=== PATIENT | male | born 1940 | race Caucasian/White ===

== ENCOUNTER 2018-11-05 17:31 | Inpatient (IN) | payer OTHER ==
[~2018-11-05] VITALS: Ht 175.2 cm; Wt 90.9 kg
--- NOTE | ~2018-11-05 | PR ---
[place], [place] PROGRESS NOTE NAME: LESLIE KNOX UNIT #: [id number] ROOM: 519 DOCTOR: FARTUN JIMENEZ MD,ADRI BIRTHDATE: [birth year] DOS: 11/09/2018 PULMONARY PROGRESS NOTE SUBJECTIVE: The patient noted comfortable at this time, resting in the bed. He has noted without any symptoms of chest pain, coughing, sputum expectoration, or abdominal pain. OBJECTIVE: VITAL SIGNS: Normal temperature, respiratory rate 20, heart rate 60, blood pressure 121/54. The pulse oxygen saturation recorded as 97% saturation. HEENT: Head was atraumatic. Eyes nonicterus. NECK: Supple. CARDIOVASCULAR SYSTEM: S1, S2 is audible. LUNGS: Without any wheezing or crackles at the present time. ABDOMEN: Soft, nontender. Bowel sounds present. EXTREMITIES: The patient was noted without any acute edema. IMPRESSION: 1. Resolution of acute congestive heart failure exacerbation. 2. 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 PLAN OF MANAGEMENT: No changes in the plan of care at this time. Continue the patient's current therapy, plan of management as previously. Usual care. ADRI WILLOUGHBY MD CM:PNTRANS [id number] ADRI JIMENEZ MD 11/10/18 0140 interface
--- NOTE | ~2018-11-05 | PR ---
[place], [place] PROGRESS NOTE NAME: LESLIE KNOX UNIT #: [id number] ROOM: 519 DOCTOR: FARTUN JIMENEZ MD,ADRI BIRTHDATE: [birth year] DOS: 11/07/2018 SUBJECTIVE: The patient has been noted comfortable at this time, sitting on the bed. Denies symptoms of chest pain. The patient still noted slow to respond to the vocal commands. However, denies any symptoms of fever or chills. Denies symptoms of coughing. Shortness of breath has been improving. OBJECTIVE: VITAL SIGNS: Normal temperature, respiratory rate 20, heart rate 60, blood pressure 114/55. Pulse oxygen saturation on room air was 100% saturation. HEENT: Examination shows no acute change. NECK: Supple. CARDIOVASCULAR: S1, S2 is audible. LUNGS: The patient was noted occasional crackles in the lung bases. There was no wheezing. ABDOMEN: Soft, nontender. Bowel sounds present. EXTREMITIES: The patient noted unchanged. IMPRESSION: 1. Asbestosis with possibility of pseudotumor with pulmonary nodule. 2. Chronic obstructive pulmonary disease exacerbation. PLAN OF TREATMENT: The patient has been responding to treatment at this time with current medical management. Continue steroids. Possible discharge planning upon assessment and clear him from the Cardiology may be considered tomorrow morning. In the meantime, continue other therapy, plan of management, care plan. Usual care. ADRI WILLOUGHBY MD CM:PNTRANS [id number] ADRI JIMENEZ MD 11/07/18 2215 interface
--- NOTE | ~2018-11-05 | EKG ---
[place], [place] ELECTROCARDIOGRAM REPORT NAME: LESLIE KNOX UNIT #: [id number] ROOM: 519 DOCTOR: MARIELY DRAFT REPORT BIRTHDATE: [birth year] [facility] Test Date: 2018-11-05 Test Time: 17:49:21 Pat Name: LESLIE KNOX Department: Room: 519 Gender: M Obstetrics Gyn Physician: : [id number] Requested By: TIMBO OBRIEN Order Number: [id number] Reading MD: Ronen Hawthorne MD Measurements Intervals [place] Rate: 71 P: 69 ID: [id number] QRS: 65 QRSD: 108 T: 66 QT: 408 QTc: 443 Interpretive Statements Sinus rhythm Atrial premature complex Left ventricular hypertrophy with secondary ST changes Electronically Signed On 11-06-2018 9:28:42 PST by Ronen Hawthorne MD CM:EKGRPT:ELECTROCARDIOGRAM REPORT [id number] TIMBO GRAMAJO DRAFT REPORT TIMBO OBRIEN DO
--- NOTE | ~2018-11-05 | PROC NOTE ---
[place], [place] PROCEDURE NOTE NAME: LESLIE KNOX UNIT #: [id number] ROOM: 519 DOCTOR: NANCY MATTHEWS BIRTHDATE: [birth year] DOS: 11/06/2018 MODIFIED BARIUM SWALLOW LOCATION: [facility], room 519, bed 1. ORDERING PHYSICIAN: Dr. Engel. RADIOLOGIST: Dr. Mustafa. BACKGROUND INFORMATION: The patient during a 78-year-old male who was seen for modified barium swallow. This test was ordered to rule out aspiration. A recent chest x-ray indicated developing pneumonia or aspiration. The patient is diagnosed with acute heart failure. He is currently n.p.o. He reported occasional cough with meals. For today's assessment, the patient was alert and able to follow all commands. Respiratory status was within normal limits. Oral peripheral examination revealed presence of upper and lower denture with adequate fit reported. Lingual, labial and buccal skills were within normal limits in terms of strength, range of motion and coordination. The patient was able to volitionally cough and swallow. METHODS AND MATERIALS USED FOR THE EXAM: The patient was positioned in the lateral plane and exam was viewed under fluoroscopy. The patient was presented with a variety of consistencies to assess swallowing skills including applesauce mixed with barium presented in half teaspoon amounts, barium-coated cookie and sandwich given in bite size pieces and thin liquid barium taken both by cup and straw in single and consecutive larger sip size amounts. ORAL PHASE: Unremarkable. PHARYNGEAL PHASE: Unremarkable. ESOPHAGEAL PHASE: This phase of the swallow was not formally assessed during this exam. IMPRESSIONS AND RECOMMENDATIONS: Based upon assessment results, this 78-year-old patient presents with oral and pharyngeal swallowing skills that are within normal limits. There was no penetration, aspiration or residue observed. Recommend a regular diet and thin liquids. No followup therapy is recommended due to safe intolerance of food and liquid. Results and recommendations were shared with the patient and he verbalized understanding. Thank you very much for this referral. Should you have any questions regarding this patient, please contact the speech pathologist at [phone]. [place], [place] PROCEDURE NOTE NAME: LESLIE KNOX UNIT #: [id number] ROOM: 519 DOCTOR: NANCY MATTHEWS BIRTHDATE: [birth year] NANCY MATTHEWS CM:AKOSUA:PROCEDURE NOTE [id number] NANCY MATTHEWS
--- NOTE | ~2018-11-05 | PR ---
[place], [place] PROGRESS NOTE NAME: LESLIE KNOX UNIT #: [id number] ROOM: 519 DOCTOR: ELDER STONE MD BIRTHDATE: [birth year] DOS: 11/08/2018 SUBJECTIVE: The patient was seen at his bedside today, 11/08/2018 for followup of his acute on chronic combined systolic and diastolic heart failure and valvular heart disease. He tells me that he is feeling well. His chest x-ray has returned to a normal appearing state. He has diuresed about 3-1/2 liters since admission. PHYSICAL EXAMINATION: VITAL SIGNS: Today, his pulse is 53 and regular, blood pressure is 112/46. He is afebrile. NECK: Supple. He has no jugular distention. Carotids are full. LUNGS: Respirations are unlabored. Chest is clear. HEART: Has a regular rhythm with frequent premature beats. He has a grade 2/6 systolic ejection murmur along the left sternal border and a grade 2/6 decrescendo diastolic murmur along the left sternal border as well. ABDOMEN: Benign. EXTREMITIES: Showed no edema. LABORATORY DATA: Electrolytes today show sodium 140, potassium 3.9, chloride 105, CO2 of 28, but his BUN has risen to 52, creatinine is 1.19. IMPRESSION: 1. Acute on chronic combined systolic and diastolic heart failure. 2. Minimal elevation in troponin, likely due to demand ischemia. 3. Valvular heart disease with mild aortic stenosis and moderate aortic insufficiency. The patient also does have a dilated left ventricle with ejection fraction between 45% and 50% and stage 2 diastolic relaxation abnormalities. PLAN: At this point, the patient tells me that his primary seo coordinator in [place] "knows about my problems and is just watching them." I cannot tell if all of his problems are due to his valvular heart disease or if he does have underlying ischemic heart disease or a nonischemic cardiomyopathy. I think, however, that he would benefit from guideline directed medical therapies. Currently, he is on losartan 25 mg daily, metoprolol 25 mg b.i.d. and aspirin in addition to his other medications. Since his BUN and creatinine are going up, I decided to stop his furosemide and start him on spironolactone. I would like to see what his laboratory studies look like in the next 24 hours. If his renal function stabilizes and he is feeling well, he probably could be discharged within the next 24 hours and then followed up by his primary doctor. I thank the hospitalist physicians for asking our advice regarding his care. [place], [place] PROGRESS NOTE NAME: LESLIE KNOX UNIT #: [id number] ROOM: [facility] DOCTOR: ELDER STONE MD BIRTHDATE: [birth year] ELDER STONE MD CM:PNTRANS [phone] ELDER STONE MD 11/09/18 1253 interface
--- NOTE | ~2018-11-05 | CON ---
[place], [place] REPORT OF CONSULTATION NAME: LESLIE KNOX UNIT #: [id number] ROOM: 519 DOCTOR: FARTUN JIMENEZ MDADRI BIRTHDATE: [birth year] DOS: 11/06/2018 PULMONARY CONSULTATION, EVALUATION AND MANAGEMENT CONSULTATION REQUESTED BY: Hospitalist services. REASON FOR CONSULTATION: For the assessment of the patient possibility of acute pneumonia, abnormal finding on CT scan of the chest. HISTORY OF PRESENT ILLNESS: A 78-year-old white male who was admitted to the hospital under care of hospitalist services. Actually review of the medical record, which has been documented by the other physician. According to the records, the patient has been admitted to the Emergency Room has been reporting symptoms of shortness of breath that has been reported at home. The patient denies any symptoms of coughing at the present time. Complaining of some symptoms of dizziness with lightheadedness. He denies any acute symptoms this morning of assessment as he has been asked a question. Review of systems could not be obtained for the patient accurately because of lack of understanding the question and answering them appropriately. PAST MEDICAL HISTORY: Reported: 1. History of gout: 2. Hyperlipidemia. 3. Essential hypertension. 4. Vitamin D deficiency. PAST SURGICAL HISTORY: Reported tonsillectomy. SOCIAL HISTORY: Reported the patient lives with his children. Tobacco use reported since teenager, pack of cigarettes per day until 1989 as stated by the patient as well. FAMILY HISTORY: The patient reported as both parents have been . Father of complication of cirrhosis of the liver. History about the mother and cause of was unknown. HOME MEDICATIONS: Listed allopurinol, aspirin, vitamin D, metoprolol tartrate, simvastatin and Flomax. DRUG ALLERGIES: No known drug allergies. PHYSICAL EXAMINATION: GENERAL: This is a 78-year-old white male patient who has been currently sitting on his bed without any acute distress this morning of assessment. The patient's height recorded as 5 feet 9 inches, weight of 208 pounds, BMI 30.7. VITAL SIGNS: The patient has normal temperature, respiratory rate of 20-17, heart rate of 59-71, blood pressure 134/59-128/50. Pulse oxygen saturation on room air 90%, on 4 liters 96%, later on room air 96% saturation. HEENT: Head was atraumatic. Eye nonicterus. NECK: Supple. [place], [place] REPORT OF CONSULTATION NAME: LESLIE KNOX UNIT #: [id number] ROOM: 519 DOCTOR: FARTUN JIMENEZ MD,ADRI BIRTHDATE: [birth year] CARDIOVASCULAR: S1, S2 is audible. LUNGS: The patient presents with scattered crackles, no wheezing. ABDOMEN: Flat, soft, nontender. Bowel sounds present. EXTREMITIES: The patient was noted without any evidence of edema, clubbing or cyanosis. MUSCULOSKELETAL: Without acute deformities. CENTRAL NERVOUS SYSTEM: The patient noted awake. Does not appear to have any gross focal neurologic deficit. MUSCULOSKELETAL: The patient was noted without any acute deformities. LABORATORY DATA: Reviewed for this consultation. The CBC that was done on admission of 11/05/2018 shows a WBC count normal, hemoglobin 11.3, hematocrit 34.3, platelet count was normal. PT, PTT for the yesterday on admission was normal. CMP of the patient's admission, BUN 29, creatinine normal, remaining LFTs and electrolytes were normal. CBC repeated this morning is identical finding of yesterday. CMP this morning, BUN is still elevated at 29, glucose 123. LFTs were normal. Electrolytes normal. Troponin was normal. Chest x-ray that was done shows evidence of a possible pleural calcification and the infiltration noted predominantly in the lower lung aeration. A small nodule in the right lower lung in the cardiophrenic area cannot be completely excluded. CT scan of the chest that was done without contrast was reviewed. Parenchymal window review shows evidence of paraseptal emphysema changes in the upper lungs. Thickening of the right minor fissure was also noted with some thickening of the left fissure as well. Pleural based nodular density with ___ tear was noted in the posterior basilar subsegment of the right lower lung. Some increased interstitial marking was noted. Calcification of the pleura noted bilaterally. IMPRESSION: 1. The patient who had been currently admitted to the hospital was noted with current finding consistent with Asbestos-related lung disease with possibly asbestosis would be considered interstitial lung disease. 2. The patient pleural based nodule, pseudotumor would be considered very likely in the right lower lung. 3. Past tobacco use. Paraseptal emphysema without any evidence of acute exacerbation of chronic obstructive pulmonary disease at this time noted. The current finding was not noted consistent with any evidence of acute pneumonia as well, current shortness of breath, thick sputum, may be related to possibility of early exacerbation of chronic obstructive pulmonary disease. The occupational history for the patient was not noted clear at the present time. Possible at work place, the patient asbestos inhalation could be considered likely. 4. Pseudotumor versus 2 nodules pleural based in the right lower lobe. PLAN OF MANAGEMENT: I will be discontinuing the antibiotics. The patient will be started on Solu-Medrol 40 mg b.i.d. for the medical management of COPD exacerbation. Continuation of bronchodilators. Try to correlate the history patient obtain with the history of the patient's family members once available to accurately determine the current causative problem of asbestosis for the patient and Asbestos-related lung disease. Supportive therapy, plan of management, care plan. Assess for this patient in the next 24 hours. The [place], [place] REPORT OF CONSULTATION NAME: LESLIE KNOX UNIT #: [id number] ROOM: [facility] DOCTOR: FARTUN JIMENEZ MD,ADRI BIRTHDATE: [birth year] patient responds to current changes in the treatment. Bronchodilator will be administered 4 times a day as well as a DuoNeb. The patient would not require any Lasix at this time. The current findings were not suggestive of congestive heart failure either. Cardiac assessment could be completed for the patient including echocardiogram to assess his left ventricular functions. Outpatient assessment for current nodular density in the right lower lobe for possible consideration of obtaining a PET scan as well. Thanks for allowing me to participate in the care of this patient. ADRI WILLOUGHBY MD CM:CONSTR:REPORT OF CONSULTATION 1359 11/06/18 3945 interface
--- NOTE | ~2018-11-05 | PR ---
[place], [place] PROGRESS NOTE NAME: LESLIE KNOX UNIT #: [id number] ROOM: 519 DOCTOR: FARTUN JIMENEZ MD,ADRI BIRTHDATE: [birth year] DOS: 11/08/2018 SUBJECTIVE: The patient was noted comfortable at this time. At this time, sitting on the chair in the room. Denies symptoms of coughing, sputum expectoration, any chest pain or sputum expectoration. OBJECTIVE: VITAL SIGNS: For the patient which were recorded showed the temperature normal, respiratory rate 20, heart rate 53, blood pressure 112/14-110/50. The pulse oxygen saturation on room air 98% saturation. HEENT: Examination shows head was atraumatic. Eyes: No icterus. NECK: Supple. CARDIOVASCULAR: S1, S2 is audible. LUNGS: The patient without any wheezing or crackles. ABDOMEN: Soft, nontender. IMPRESSION: 1. The patient who has been currently admitted to the hospital, was noted progressive improvement and resolution of the acute respiratory symptoms progressively. 2. Acute congestive heart failure as well. 3. Pleural based nodule as well. 4. Calcified pleural plaques. 5. Asbestos-related lung disease. PLAN OF MANAGEMENT: No changes from the pulmonary standpoint. Consider the patient home discharge whenever desired for the patient. Outpatient care for the patient could be established in my office for the assessment pulmonary nodule and other pulmonary disease. ADRI WILLOUGHBY MD CM:PNTRANS [id number] ADRI JIMENEZ MD 11/09/18 0233 interface
[2018-11-05 17:32] VITALS: BP 190/70
[2018-11-05 18:00] LABS: BASO % 0.6 % (0.0-1.0); EOS # 0.1 10*3/uL (0.0-0.4); EOS % 1.1 % (1.0-4.0); HEMATOCRIT 34.4 % (42.0-52.0); HEMOGLOBIN 11.3 g/dl (14.0-18.0); LYMPH # 1.2 10*3/uL (1.3-4.4); LYMPH % 17.9 % (27.0-41.0); MEAN CELL VOLUME 94.5 fl (80.0-94.0); MEAN CORPUSCULAR HGB CONC 32.8 g/dl (33.0-37.0); MEAN PLATELET VOLUME 10.7 fl (9.6-12.3); MONO # 0.5 10*3/uL (0.1-1.0); MONO % 6.9 % (3.0-9.0); NEUT # 4.8 10*3/uL (2.3-7.9); PLATELET COUNT AUTOMATED 150 10*3/uL (130-400); RED BLOOD COUNT 3.64 10*6/uL (4.50-5.90); RED CELL DISTRI WIDTH 13.2 % (0-14.5); WHITE BLOOD COUNT 6.5 10*3/uL (4.8-10.8)
[2018-11-05 18:15] LABS: ALBUMIN 3.8 gm/dl (3.1-4.5); ALKALINE PHOSPHATASE 97 U/L (45-117); BUN 29 mg/dl (7-24); CHLORIDE 106 mmol/L (98-107); CREATININE 0.91 mg/dL (0.70-1.30); LIPASE 128 U/L (73-393); POTASSIUM 3.9 mmol/L (3.5-5.1); SGOT/AST 17 IU/L (3-35); SGPT/ALT 19 U/L (12-78); SODIUM 140 mmol/L (136-145); TOTAL PROTEIN 7.8 gm/dL (6.4-8.2); TROPONIN I 0.025 ng/ml (<0.045)
[2018-11-05 18:17] LABS: ACT PARTIAL THROMBO TIME 25.1 SECONDS (20.8-31.5)
[2018-11-05 18:32] VITALS: BP 194/85
[2018-11-05 19:35] VITALS: BP 155/53
--- NOTE | 2018-11-05 22:22 | NUR ---
DELAY IN TAKING PT TO FLOOR FOR ADMISSION, PT GOING TO CT SCAN FIRST.
[2018-11-05 22:33] VITALS: BP 134/59
[2018-11-05 23:00] VITALS: BP 155/53
--- NOTE | 2018-11-05 23:00 | NUR ---
A 78YR OLD MALE, admitted to 5E, under the services of LOPEZ Nguyễn DO with a diagnosis of ACUTE HEART FAILURE. Chief complaint is TACHYPNEA AND BILATERAL LOWER EXTREMITY EDEMA. Patient arrived via stretcher from ER. Monitor applied. Initial assessment completed. Vital signs taken and recorded. LOPEZ NGUYỄN DO notified of admission to the unit. Orders received. See assessment for past medical history, medications and allergies. Patient and/or family oriented to unit 5E. visitation policy reviewed. Clothing/patient valuable form completed. HANNAH CLAUDIO
[2018-11-06] MEDS ORDERED: TOPROL XL25 MG PO (00:20)
[2018-11-06] MEDS ORDERED: TAMSULOSIN HCL0.4 MG PO (00:21)
[2018-11-06] MEDS ORDERED: SIMVASTATIN40 MG PO (00:22)
[2018-11-06] MEDS ORDERED: ALLOPURINOL100 MG PO (00:22)
[2018-11-06] MEDS ORDERED: VITAMIN D-32000 UNI1 PO (00:23)
[2018-11-06] MEDS ORDERED: ASPIR LOW81 MG PO (00:24)
--- NOTE | 2018-11-06 00:30 | NUR ---
Called and notified Dr. Engel about medication reconciliation updated and verified per patient's home medication list.
--- NOTE | 2018-11-06 01:52 | NUR ---
Called and notified Dr. Engel regarding critical Troponin level. No new orders received at this time.
--- NOTE | 2018-11-06 03:08 | NUR ---
24 HR chart check completed.
[2018-11-06 04:27] LABS: BASO % 0.4 % (0.0-1.0); EOS # 0.1 10*3/uL (0.0-0.4); EOS % 1.3 % (1.0-4.0); HEMATOCRIT 33.8 % (42.0-52.0); LYMPH # 0.8 10*3/uL (1.3-4.4); LYMPH % 12.1 % (27.0-41.0); MEAN CELL VOLUME 93.9 fl (80.0-94.0); MEAN CORPUSCULAR HGB 30.6 pg (27.0-31.0); MEAN CORPUSCULAR HGB CONC 32.5 g/dl (33.0-37.0); MEAN PLATELET VOLUME 10.4 fl (9.6-12.3); MONO # 0.6 10*3/uL (0.1-1.0); MONO % 8.1 % (3.0-9.0); NEUT # 5.3 10*3/uL (2.3-7.9); NEUT % 77.7 % (47.0-73.0); PLATELET COUNT AUTOMATED 151 10*3/uL (130-400); RED CELL DISTRI WIDTH 13.2 % (0-14.5); WHITE BLOOD COUNT 6.8 10*3/uL (4.8-10.8)
[2018-11-06 04:44] LABS: ALBUMIN 3.8 gm/dl (3.1-4.5); ALKALINE PHOSPHATASE 88 U/L (45-117); BUN 29 mg/dl (7-24); CHLORIDE 106 mmol/L (98-107); CHOLESTEROL 136 mg/dL (<200); CREATININE 1.04 mg/dL (0.70-1.30); FREE T4 1.01 ng/dl (0.76-1.46); HDL CHOLESTEROL 81 mg/dl (40-60); LDL CHOLESTEROL 41 mg/dL (9-159); SGOT/AST 16 IU/L (3-35); SGPT/ALT 18 U/L (12-78); SODIUM 141 mmol/L (136-145); TOTAL PROTEIN 7.6 gm/dL (6.4-8.2); TRIGLYCERIDES 68 mg/dl (<150); VLDL CHOLESTEROL 14 mg/dL (6-40)
--- NOTE | 2018-11-06 04:45 | NUR ---
Called and notified Dr. Engel of critical Troponin level. No new orders were received at this time.
--- NOTE | 2018-11-06 06:43 | NUR ---
Called and notified Dr. Pineda regarding consult. He said ok.
[2018-11-06 08:00] VITALS: BP 128/50
[2018-11-06 08:18] LABS: VITAMIN D, 25-HYDROXY 24.5 ng/mL (30-100)
--- NOTE | 2018-11-06 11:34 | NUR ---
Row Boss in to talk to patient. Patient states lives at HOME with SON, HIS AND CHILD. There are 15 steps in the home. Physician: STATES DR IN [place], YOU WOULD NOT KNOW HER, BUT HE WAS UNABLE TO GIVE NAME Pharmacy: [facility] Home health services: NONE Patient's level of ADLs: INDEPENDENT Patient has working utilities: YES DME: NONE Follow-up physician's appointment after d/c: PT STATES WILL MAKE IT Does patient want to access PORTAL?: NO Discharge plan SPOKE WITH PT ABOUT DISCHARGE PLANS, PT SEEMS FORGETFUL AT TIMES, STATES HE LIVES WITH HIS SON AND HIS AND CHILD. ATTEMPT TO TALK TO PT ABOUT SKILLED STAY OR HH, BUT PT STATES I AM GOING HOME AND IT IS GOING TO BE PRETTY SOON. WILL CONTINUE TO FOLLOW . GARY HANNA
[2018-11-06 12:00] VITALS: BP 138/56
--- NOTE | 2018-11-06 13:54 | NUR ---
SPEECH PATHOLOGY Modified barium swallow completed as per orders. This was ordered to rule out aspiration. Patient is currently NPO. CXR revealed patchy airspace disease in right middle and superior segment of right lower lobe, indicating developing pneumonia or aspiration. Patiet reported occasional cough with meals. He was assessed with puree, solids and thin liquids via cup and straw. Oral and pharyngeal swallowing skills were WNL. There was no penetration, aspiration or residue. Recommend a regular diet and thin liquids. No follow up therapy is recommended due to safe tolerance of food and liquid. Patient's nurse will be informed of results and karuna. and verbalized understanding. Dictated report to follow. Thank you for this referral. [facility] [employer] [employer]
[2018-11-06 14:06] LABS: BILIRUBIN NEGATIVE (NEGATIVE); BLOOD NEGATIVE (NEGATIVE); CLARITY CLEAR (CLEAR); COLOR YELLOW (YELLOW); GLUCOSE NEGATIVE (NEGATIVE); KETONE NEGATIVE (NEGATIVE); LEUKO ESTERASE NEGATIVE (NEGATIVE); NITRITE NEGATIVE (NEGATIVE); PH 5.5 (5.0-9.0); UROBILINOGEN 0.2 E.U./dl (0.2-1.0)
[2018-11-06 14:14] LABS: BACTERIA TRACE; RBC 0-2 rbc/hpf (0-2); WBC 0-2 wbc/hpf (0-5)
--- NOTE | 2018-11-06 15:04 | NUR ---
SPEECH CALLED AND STATES PT PASSED MOD BARIUM SWALLOW. AND COULD BE ON A REGULAR DIET. DR ZAVALA NOTIFIED.
[2018-11-06 16:00] VITALS: BP 154/52
--- NOTE | 2018-11-06 17:16 | NUR ---
DR STONE'S RESIDENT NOTIFIED OF CONSULT.
[2018-11-06 20:00] VITALS: BP 123/58
[2018-11-07] VITALS: BP 153/62
[2018-11-07 06:27] LABS: BASO % 0.2 % (0.0-1.0); HEMATOCRIT 33.8 % (42.0-52.0); HEMOGLOBIN 10.8 g/dl (14.0-18.0); LYMPH # 0.5 10*3/uL (1.3-4.4); LYMPH % 11.3 % (27.0-41.0); MEAN CELL VOLUME 93.1 fl (80.0-94.0); MEAN CORPUSCULAR HGB 29.8 pg (27.0-31.0); MEAN PLATELET VOLUME 11.7 fl (9.6-12.3); MONO # 0.1 10*3/uL (0.1-1.0); MONO % 2.8 % (3.0-9.0); NEUT # 3.6 10*3/uL (2.3-7.9); NEUT % 85.2 % (47.0-73.0); PLATELET COUNT AUTOMATED 163 10*3/uL (130-400); RED BLOOD COUNT 3.63 10*6/uL (4.50-5.90); RED CELL DISTRI WIDTH 13.1 % (0-14.5); WHITE BLOOD COUNT 4.3 10*3/uL (4.8-10.8)
[2018-11-07 06:33] LABS: CHLORIDE 102 mmol/L (98-107); CREATININE 1.11 mg/dL (0.70-1.30); POTASSIUM 4.3 mmol/L (3.5-5.1); SODIUM 137 mmol/L (136-145)
[2018-11-07 06:40] LABS: BUN 40 mg/dl (7-24)
[2018-11-07 08:00] VITALS: BP 114/55
--- NOTE | 2018-11-07 08:30 | NUR ---
Patient resting quietly with no c/o discomfort. Respirations easy and regular. Vital signs stable. No overt distress. KRISH RAMIREZ R
[2018-11-07 12:00] VITALS: BP 132/50
--- NOTE | 2018-11-07 14:20 | NUR ---
FAMILY AT [facility]. UPDATED ON STATUS AND PLAN OF CARE. CALL LIGHT IN REACH. WILL MONITOR
[2018-11-07 16:00] VITALS: BP 134/48
[2018-11-07 20:00] VITALS: BP 115/40
[2018-11-07 22:00] VITALS: BP 115/40
[2018-11-08] VITALS: BP 108/34
[2018-11-08 06:39] LABS: CHLORIDE 105 mmol/L (98-107); CREATININE 1.19 mg/dL (0.70-1.30); POTASSIUM 3.9 mmol/L (3.5-5.1); SODIUM 140 mmol/L (136-145)
[2018-11-08 06:41] LABS: BUN 52 mg/dl (7-24)
[2018-11-08 08:00] VITALS: BP 110/50; BP 112/46
--- NOTE | 2018-11-08 11:23 | NUR ---
IN TO TALK TO PT ABOUT DISCHARGE PLANS, HE STATES HE WILL GO HOME WITH NO NEEDS. I ASK HIM IF HE WOULD BE GOING BACK TO LIVE WITH SON, DAUGHTER IN [place] AND HE SMILED AND SAID NO THEY LIVE WITH ME. WILL CONTINUE TO FOLLOW.
[2018-11-08 12:00] VITALS: BP 100/47
[2018-11-08 16:00] VITALS: BP 110/54
[2018-11-08 20:00] VITALS: BP 132/44
[2018-11-09] VITALS: BP 118/39
[2018-11-09 06:39] LABS: BUN 47 mg/dl (7-24); CHLORIDE 107 mmol/L (98-107); CREATININE 1.03 mg/dL (0.70-1.30); POTASSIUM 4.3 mmol/L (3.5-5.1); SODIUM 141 mmol/L (136-145)
--- NOTE | 2018-11-09 06:58 | NUR ---
PATIENTS IV WAS LEAKING AT THE SIGHT. I ATTEMPTED ONE TIME TO REPLACE IV. MILLIE MUÑIZ PLACE THE IV IN THE LEFT AC.
[2018-11-09 08:00] VITALS: BP 122/50
[2018-11-09 08:15] VITALS: BP 116/78
[2018-11-09 12:00] VITALS: BP 121/54
[2018-11-09] MEDS ORDERED: DOXYCYCLINE100 M3 PO (13:42)
[2018-11-09] MEDS ORDERED: ALDACTONE25 MG PO (13:42)
[2018-11-09] MEDS ORDERED: LASIX20 MG PO (13:42)
[2018-11-09] MEDS ORDERED: B12,B-12,B 12500 MC1 PO (13:42)
[2018-11-09] MEDS ORDERED: LOSARTAN POTASS25 M1 PO (13:42)
--- NOTE | 2018-11-09 15:06 | NUR ---
Discharge instructions reviewed with patient/family. Patient receptive and verbalizes understanding. Follow-up care arranged. Written instructions given to patient/family. NKECHI MUÑIZ
== END 2018-11-09 15:06 | disposition home or self-care (01) | DRG 291 ==
LOC: ED 17:31 → 5E 19:17 → EDHOLD 19:17 → 5E 20:25
PROVIDERS: Emergency Medicine; Internal Medicine; Internal Medicine Cardiovascular Disease; Student in an Organized Health Care Education/Training Program; ADMIT Internal Medicine
PROC: BD11YZZ Fluoroscopy of Esophagus using Other Contrast (ICD-10-PCS; principal; 2018-11-06)
PROC: BD1BYZZ Fluoroscopy of Mouth/Oropharynx using Other Contrast (ICD-10-PCS; principal; 2018-11-06)
DX: I11.0 Hypertensive heart disease with heart failure (principal); J18.9 Pneumonia, unspecified organism; J81.0 Acute pulmonary edema; J44.0 Chronic obstructive pulmonary disease with (acute) lower respiratory infection; J44.1 Chronic obstructive pulmonary disease with (acute) exacerbation; I50.43 Acute on chronic combined systolic (congestive) and diastolic (congestive) heart failure; M10.9 Gout, unspecified; E78.5 Hyperlipidemia, unspecified; D53.9 Nutritional anemia, unspecified; E73.9 Lactose intolerance, unspecified; E55.9 Vitamin D deficiency, unspecified; E66.9 Obesity, unspecified; I35.0 Nonrheumatic aortic (valve) stenosis; I42.9 Cardiomyopathy, unspecified; Z86.73 Personal history of transient ischemic attack (TIA), and cerebral infarction without residual deficits; Z68.30 Body mass index [BMI] 30.0-30.9, adult; Z87.891 Personal history of nicotine dependence; Z83.2 Family history of diseases of the blood and blood-forming organs and certain disorders involving the immune mechanism